=== PATIENT | female | born 1995 | race Caucasian/White ===

== ENCOUNTER 2020-07-21 13:47 | Emergency (ER) | payer OTHER ==
[2020-07-21 14:00] VITALS: BP 128/67
--- NOTE | 2020-07-21 14:23 | ED Physician Documentation ---
PD HPI SKIN - Stated complaint Stated Complaint: BUG BITE ON FACE - Chief complaint Chief Complaint: Wound - History obtained from History obtained from: Patient - History of Present Illness Timing - onset: Yesterday Timing - details: Abrupt onset (noted onset redness and tenderness locally left cheek yesterday when she awoke from sleep. No noted injury. Had felt okay the day prior. Tried cool towels, then heat to the area. This morning is less swollen but still locally tender. No drainage. Unaware of bug per se. No other lesions.), Still present (improved moderately today, less swelling but still runner.) Location: Face (left cheek) Quality / character: Painful, Discolored (red), Swelling. No: Itchy Similar symptoms before: Has not had sx before Recently seen: Not recently seen Review of Systems Constitutional: denies: Fever, Chills Nose: denies: Rhinorrhea / runny nose, Congestion Throat: denies: Sore throat Respiratory: denies: Cough Skin: denies: Abrasion (s), Laceration (s) PD PAST MEDICAL HISTORY - Past Medical History Past Medical History: No - Present Medications Home Medications: Ambulatory Orders Medication Instructions Recorded Confirmed Mupirocin Calcium [Mupirocin] 1 applic TP TID #15 cream..g. 07/21/20 Sulfamethox/Trimeth 800/160 1 each PO BID #10 tablet 07/21/20 [Bactrim Ds 800/160] - Allergies Allergies/Adverse Reactions: Allergies Allergy/AdvReac Type Severity Reaction Status Date / Time No Known Drug Allergies Allergy Verified 07/21/20 14:00 PD ED PE NORMAL - Vitals Vital signs reviewed: Yes - General General: Alert and oriented X 3, No acute distress, Well developed/nourished - HEENT HEENT: PERRL, EOMI, Other (left cheek with 2 cm diameter area of redness and induration without fluctuance. No punctures or such noted. ) Results - Vitals Vitals: Vital Signs - 24 hr 07/21/20 13:55 Temperature 37 C Heart Rate 79 Respiratory 17 Rate Blood Pressure 128/67 O2 Saturation 100 Oxygen O2 Source Room air PD MEDICAL DECISION MAKING - ED course Complexity details: considered differential (discussed with patient, and shared decision to see if continues to improve, as local reaction or venom effect, and to start abx if not improved over 1-2 days or if worse again. Consider local infection vs venom effect. ), d/w patient Departure - Departure Disposition: 01 Home, Self Care Clinical Impression: Swelling of left side of face Condition: Stable Record reviewed to determine appropriate education?: Yes Prescriptions: Sulfamethox/Trimeth 800/160 [Bactrim Ds 800/160] 1 each PO BID #10 tablet Mupirocin Calcium [Mupirocin] 1 applic TP TID #15 cream..g. Comments: You can see how this does over the next day or so with warm towels periodically to the area. If he continues to improve then no particular treatment. If it persists or worsens over the next couple of days then add antibiotics topical and oral as prescribed. Discharge Date/Time: 07/21/20 14:35
== END 2020-07-21 14:35 | disposition home or self-care (01) ==
LOC: ED 13:47
DX: R22.0 Localized swelling, mass and lump, head (principal)
CPT/HCPCS: 99282; 99283